=== PATIENT | female | born 1990 ===

== ENCOUNTER 2016-12-10 18:31 | Inpatient (IN) | payer BC, OTHER ==
[2016-12-10 19:55] VITALS: BMI 25.2
[2016-12-10] MEDS ORDERED: Lactated Ringer's 1,000 ML IV SCH (20:00)
--- NOTE | 2016-12-10 22:07 | US ---
EXAM: US Retroperitoneal Limited, Renal CLINICAL HISTORY: 26 years old, female; Pain; Other: Kt flank pain; ; Additional info: Bilateral flank pain at 34w4d gestation, HX stone TECHNIQUE: Real-time ultrasound of the retroperitoneum (limited) with image documentation. COMPARISON: No relevant prior studies available. FINDINGS: Right kidney: Unremarkable in size measuring 10.3 x 4.2 x 4.9 cm. And 8 mm calculus is identified within the mid portion of the right kidney. Prominence of the right renal pelvis without anna hydronephrosis. Left kidney: Unremarkable in size measuring 10.9 x 4.2 x 5.1 cm. A 7 mm calculus is detected within the upper pole calyx of the left kidney. No hydronephrosis is detected. A left ureteral jet is detected. Despite prolonged interrogation, no right ureteral jet was identified. IMPRESSION: Bilateral renal calculi. Prominence of the right renal pelvis, without anna hydronephrosis. Despite prolonged interrogation, no right ureteral jet was identified. These findings taken together suggest the presence of obstructing/partially obstructing right ureteral calculus.
--- NOTE | 2016-12-10 22:57 | OBHP ---
Datetime: 12/10/2016 19:48 IP Adm Impression: , intrauterine IP Admit Plan: Admit to unit; Observation/Evaluation Admit Comment, IP Provider: 26 yo F, with IUP at 34.4 weeks, confirmed by u/s presents to OB ED with complaint of abdominal pain that is cramping in nature. She states the pain started around 7 pm last night, and she has been feeling it every 10 minutes since then. She feel the fetus moving, de nies vaginal bleeding, denies loss of fluid. Last sexual activity 1 week ago. 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 Past OBhx: 2 C-sections at full term, (2008, 2013). 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 PMHx: Denies any chronic medical problems. Family hx: diabetes (mother, maternal aunt and uncle, maternal grandfather) Surg hx: 2 C-sections Social hx: Denies tobacco, alcohol, drug use. Medications: pre- vitamins Allergies: penicillin care: [facility] Next appt: 12/18 ROS: denies burning with urination, chest pain, sob, neausea, vomitting, headache PE: BP:105/67 FHR: 130 General: AAOx3 CV: S1,S2, RRR Resp: clear to auscultation bilaterally Abd: +BS, gravid Extremities: no edema, no pain on palpation Pelvic exam: cervix 0 cm dilated, long, thick. Assessment: 26 yo F with IUP at 34.4 weeks, having irregularly timed contractions on the kristine tor every 2-11 minutes. Not in active labor. Plan: IV hydration and observation and monitoring for resolution Addendum: @ 2044, pt complained of back pain, revealed hx of kindey stones in the past. renal u/s ordered contractions have decreased in frequency, lower abdominal pain resolving 22:35 Renal u/s: 8mm calculus in right kidney; 7mm calculus in left kidney. impression: bilateral renal calculi without anna hydronephrosis. suggested presence obstructing/partially obstructing right ure teral calculus. Plan: Admit to L_D Continue hydration with LR CBC, CMP, Type and screen Urology consult Continue to monitor contractions and pain -[email or web address] OB Hospitalist Addendum: Pt seen and examined by me. Agree w/ above. 26 yo at 34+4 wks p/w cramps and b/l flank pain, denies VB, LOF, reports FM. Gen'l: pt appears uncomfortable during a ctxn Abdomen: soft, NT, gravid, mild b/l CVA tenderness VE: closed/ thick/ high Ext: NT Pt given IVF Renal u/s revealed bilateral renal calculi. Prominence of the rt renal pelvis, w/o anna hydronep hrosis. No right ureteral jet identified. Findings suggest the presence of obstructing/ partially o bstructing rt ureteral calculus. Pt admitted to L_D. Urology consult ordered for the am. Will order CBC, CMP, T_S, and continue IVF. NST reactive (ES) Extremities - PN: Normal Abdomen - PN: Normal Back - PN: Normal Lungs - PN: Normal Heart - PN: Normal HEENT - PN: Normal General - PN: Normal FHR - Baseline A Provider: 130 Membranes, Provider: Intact Contraction Comments Provider: irregular Comments, ACOG Physical Exam: cervix closed, long, thick. Gestation - Est Wks by US: 34.4 IP Hx Assessment: The History has been Reviewed and is Current EGA AdmitDate IP: 34.4 Vital Signs Provider: Reviewed IP Chief Complaint: Uterine contractions NICHD Variability Prov Fetus A: Moderate 6-25bpm NICHD Accel Fetus A IP Provider: [id number] FHR Category Provider Fetus A: Category I NICHD Decel Fetus A IP Provider: None Dilatation, Provider: 0 Effacement, Provider: 0 Station, Provider: -3 Genitourinary Exam: Normal
--- NOTE | 2016-12-10 23:02 | OBADHP ---
Datetime: 12/10/2016 22:57 Admit Comment, IP Provider: 26 yo F, with IUP at 34.4 weeks, confirmed by u/s presents to OB ED with complaint of abdominal pain that is cramping in nature. She states the pain started around 7 pm last night, and she has been feeling it every 10 minutes since then. She feel the fetus moving, de nies vaginal bleeding, denies loss of fluid. Last sexual activity 1 week ago. 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 Past OBhx: 2 C-sections at full term, (2008, 2013). 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 PMHx: Denies any chronic medical problems. Family hx: diabetes (mother, maternal aunt and uncle, maternal grandfather) Surg hx: 2 C-sections Social hx: Denies tobacco, alcohol, drug use. Medications: pre- vitamins Allergies: penicillin care: [facility] Next appt: 12/18 ROS: denies burning with urination, chest pain, sob, neausea, vomitting, headache PE: BP:105/67 FHR: 130 General: AAOx3 CV: S1,S2, RRR Resp: clear to auscultation bilaterally Abd: +BS, gravid Extremities: no edema, no pain on palpation Pelvic exam: cervix 0 cm dilated, long, thick. Assessment: 26 yo F with IUP at 34.4 weeks, having irregularly timed contractions on the kristine tor every 2-11 minutes. Not in active labor. Plan: IV hydration and observation and monitoring for resolution Addendum: @ 2044, pt complained of back pain, revealed hx of kindey stones in the past. renal u/s ordered contractions have decreased in frequency, lower abdominal pain resolving 22:35 Renal u/s: 8mm calculus in right kidney; 7mm calculus in left kidney. impression: bilateral renal calculi without anna hydronephrosis. suggested presence obstructing/partially obstructing right ure teral calculus. Plan: Admit to L_D Continue hydration with LR CBC, CMP, Type and screen Urology consult Continue to monitor contractions and pain -[email or web address] OB Hospitalist Addendum: Pt seen and examined by me. Agree w/ above. 26 yo at 34+4 wks p/w cramps and b/l flank pain, denies VB, LOF, reports FM. Gen'l: pt appears uncomfortable during a ctxn Abdomen: soft, NT, gravid, mild b/l CVA tenderness VE: closed/ thick/ high Ext: NT Pt given IVF Renal u/s revealed bilateral renal calculi. Prominence of the rt renal pelvis, w/o anna hydronep hrosis. No right ureteral jet identified. Findings suggest the presence of obstructing/ partially o bstructing rt ureteral calculus. Pt admitted to L_D. Urology consult ordered for the am. Will order CBC, CMP, T_S, and continue IVF. NST reactive (ES) Extremities - PN: Normal Abdomen - PN: Normal Lungs - PN: Normal Heart - PN: Normal Neurologic - PN: Normal HEENT - PN: Normal General - PN: Normal FHR - Baseline A Provider: 130 Comments, ACOG Physical Exam: cervix closed, long, thick. Gestation - Est Wks by US: 34.4 IP Hx Assessment: The History has been Reviewed and is Current Vital Signs Provider: Reviewed IP Chief Complaint: Uterine contractions; Maternal discomfort NICHD Variability Prov Fetus A: Moderate 6-25bpm NICHD Accel Fetus A IP Provider: [id number] FHR Category Provider Fetus A: Category I NICHD Decel Fetus A IP Provider: None Dilatation, Provider: 0 Effacement, Provider: 0 Station, Provider: -3 Genitourinary Exam: Normal EGA AdmitDate IP: 34.4 IP Adm Impression: , intrauterine IP Admit Plan: Admit to unit Datetime: 12/10/2016 19:48 Back - PN: Normal Membranes, Provider: Intact Contraction Comments Provider: irregular
[2016-12-10 23:20] LABS: BASO # 0.1 K/uL (0.0-0.2); BASO % 0.8 % (0.0-2.0); EOS # 0.1 K/uL (0.0-0.7); EOS % 1.2 % (0.0-4.0); HEMATOCRIT 35.4 % (34.0-47.0); LYMPH # 2.5 K/uL (1.0-4.3); MEAN CELL VOLUME 90.3 fl (81.0-99.0); MEAN CORPUSCULAR HEMOGLOBIN 30.5 pg (27.0-31.0); MEAN CORPUSCULAR HGB CONC 33.8 g/dL (33.0-37.0); MEAN PLATELET VOLUME 8.6 fl (7.2-11.7); MONO # 0.8 K/uL (0.0-0.8); MONO % 7.6 % (0.0-10.0); NEUT # 6.5 K/uL (1.8-7.0); NEUT % 65.4 % (50.0-75.0); NRBC % 0.1 % (0.0-0.0); RED CELL DISTRIBUTION WIDTH 13.9 % (11.5-14.5); WHITE BLOOD COUNT 9.9 K/uL (4.8-10.8)
[2016-12-10 23:27] LABS: ALB/GLOB RATIO 1.1 (1.0-2.1); ALKALINE PHOSPHATASE 151 U/L (38-126); ALT/SGPT 28 U/L (9-52); AST/SGOT 20 U/L (14-36); BILIRUBIN,TOTAL 0.3 mg/dl (0.2-1.3); BLOOD UREA NITROGEN 4 mg/dl (7-17); CALCIUM 8.6 mg/dL (8.4-10.2); CARBON DIOXIDE 25 mmol/L (22-30); CHLORIDE 107 mmol/L (98-107); GFR AFRICAN-AMERICAN > 60; GLUCOSE,RANDOM 75 mg/dL (65-105); POTASSIUM 3.5 MMOL/L (3.6-5.0); SODIUM 139 mmol/l (132-148); TOTAL PROTEIN 6.3 G/DL (6.3-8.2)
--- NOTE | 2016-12-11 12:06 | OBPN ---
Datetime: 12/11/2016 11:45 IP Progress Impression Other: b/l nephrolithiasis, possible obstruction in R kidney IP Progress Note Comment: at 33w4d EDC 01/25/17 dated by u/s at 6w3d not c/w LMP presented with pelvic pain and low back pain, after hydration pain persistend and renal u/s done. U/S showed R kidney with 8mm calculus with prominence of R renal pelvis wihtou anna hydronephrosi s, Left Kidney 7mm calculus, no hydronephrosis Past hx of uncomplicated neprholithiasis. Denies abx use in the past several months or frequent UT I. POBhx: 2 previous c/s Labs: B+, wbc 9.9, H/H 11.9/35.4, Plt 197, creatinine 0.5, GCT 121, RPR nr, HIV neg, hbsag neg, RI PShx: c/s x 2, desires BTL Exam: afebrile, CV RRR, Lungs CTA b/l, CVA tenderness b/l Labs cbc, bmp wnl A/P: 33w4d with b/l nephrolithiasis, possible partial obstruction of R side 1. consult for further management given possible obstruction, Dr. Vo aware 2. IVF, analgesia prn 3. no signs of acute infection, check ua, ucx, hold abx for now 4. regular diet, tolerated 5. case d/w Dr. Johnson 6. ambulating w/o difficulty Datetime: 12/10/2016 22:57 FHR - Baseline A Provider: 130 Gestation - Est Wks by US: 34.4 Vital Signs Provider: Reviewed NICHD Accel Fetus A IP Provider: [id number] FHR Category Provider Fetus A: Category I NICHD Variability Prov Fetus A: Moderate 6-25bpm Dilatation, Provider: 0 Effacement, Provider: 0 Station, Provider: -3 NICHD Decel Fetus A IP Provider: None Datetime: 12/10/2016 19:48 Membranes, Provider: Intact Contraction Comments Provider: irregular
[2016-12-11 14:46] LABS: RBC URINE 2 /hpf (0-3); URINE BILIRUBIN NEGATIVE (NEGATIVE); URINE BLOOD NEGATIVE (NEGATIVE); URINE COLOR YELLOW (YELLOW); URINE GLUCOSE (UA) 150 mg/dL (Normal); URINE KETONE NEGATIVE (NEGATIVE); URINE LEUKOCYTE ESTERASE NEG Leu/uL (Negative); URINE PROTEIN NEGATIVE (NEGATIVE); URINE UROBILINOGEN 0.2-1.0 mg/dL (0.2-1.0); WBC URINE 2 /hpf (0-5)
--- NOTE | 2016-12-11 16:44 | OBDCSUM ---
Datetime: 12/11/2016 16:41 Disch Instr Diet: Regular Discharge Time: 12/11/2016 16:00 Discharge Comment, Provider: Patient with b/l nephrolithiasis without infection. Evaluated by . Ne eds to strain urine in case she passes stone, maintain at minimum 2L fluid intake per day, acetaminop hen for pain prn. F/u outpatient for care and medical management of stones. ED precautions f or fever, chills, vomiting, dysuria, worsening pelvic/back pain, hematuria, labor, vaginal bleeding, loss of fluid. kickcounts discussed. Discharge Diagnosis Prov Other: b/l nephrolithiasis w/o obstruction or infection Datetime: 12/11/2016 15:00 Discharged to, Provider: Home Follow up at, Provider: Mio Guzman Disch Instr Activity: Normal activity Disch Instr Diet: Regular Discharge Time: 12/04/2016 15:00 Follow up in weeks, Provider: at next scheduled visit Disch Referrals: None
--- NOTE | 2016-12-11 19:58 | CP.PCM.PN ---
Subjective - Date & Time of Evaluation Date of Evaluation: 12/11/16 Time of Evaluation: 19:51 - Subjective Subjective: urology Pt seen earlier today for eval of ultrasound findings of a left renal calculus. She has old history of calc disease with spontaneous passage os stone. Currently left renal stone 7mm non obstructive is noted. The pt complains of bilateral flank pain which on percussion is not overly convincing of true renal colic. n I suggest no intervention at this time and post npartum to exercise definitive treatment for this calculus Objective - Labs Labs: 12/10/16 23:14 12/10/16 23:14
[2016-12-11 21:03] VITALS: BP 110/69; PULSE 106; RESP 16; TEMP 98; O2SAT 100
== END 2016-12-11 15:45 | disposition home or self-care (01) | DRG 781 ==
LOC: H.EROB2 18:31 → H.EROB 19:28 → H.EROB2 22:43 → H.L&D 22:45
PROVIDERS: ADMIT Obstetrics & Gynecology; ATTEND Obstetrics & Gynecology
PROC: 4A1HXCZ Monitoring of Products of Conception, Cardiac Rate, External Approach (ICD-10-PCS; principal; 2016-12-10)
DX: O26.833 Pregnancy related renal disease, third trimester (principal); O34.211 Maternal care for low transverse scar from previous cesarean delivery; N13.2 Hydronephrosis with renal and ureteral calculous obstruction; Z3A.34 34 weeks gestation of pregnancy; Z83.3 Family history of diabetes mellitus; N85.8 Other specified noninflammatory disorders of uterus